=== PATIENT | female | born 1985 | race Caucasian/White ===

== ENCOUNTER 2016-12-07 06:30 | Inpatient (IN) | payer MEDICAID, OTHER, SELFPAY ==
[2016-12-07] MEDS: Lactated Ringer's 1,000 ML IV SCH ×2 (07:10→08:44)
[2016-12-07] MEDS ORDERED: Sodium Chloride 0.9% 100 ML ONE (07:11)
[2016-12-07] MEDS ORDERED: Penicillin G Potassium 5 MILL.UNITS VIAL ONE (07:11)
[2016-12-07 07:20] VITALS: BMI 26.5
[2016-12-07] MEDS ORDERED: Fentanyl 4 mcg/Marc 0.1% Cadd 100 ML ONE (07:25)
[2016-12-07 07:45] LABS: Mean Platelet Volume 7.8 fL (7.4-10.4); Red Blood Cell (RBC) Count 4.68 mill/uL (4.20-5.40); White Blood Cell (WBC) Count 6.4 thou/uL (4.8-10.8)
[2016-12-07] MEDS ORDERED: Lactated Ringer's 500 ML IV PRN (08:17)
[2016-12-07] MEDS ORDERED: Acetaminophen 325 MG TAB PO PRN (08:17)
[2016-12-07] MEDS ORDERED: Naloxone HCl 0.4 mg/ml Vial IVP PRN ×2 (08:17)
[2016-12-07] MEDS ORDERED: Promethazine HCl 25 MG/ML VIAL IM PRN ×2 (08:17→10:10)
[2016-12-07] MEDS ORDERED: Eucerin (Mineral Oil/Petrolatum,White) 30 gm Jar TOP PRN (08:17)
[2016-12-07] MEDS ORDERED: HYDROmorphone 2 MG/ML VIAL SLOW IVP PRN (08:17)
[2016-12-07] MEDS ORDERED: ePHEDrine/0.9% NaCl/PF SYRINGE 50 mg/10 ml SLOW IVP PRN (08:17)
[2016-12-07] MEDS ORDERED: Ondansetron HCl/PF 4 MG/2 ML Vial IVP PRN ×4 (08:17→13:37)
[2016-12-07] MEDS ORDERED: Meperidine HCl/PF 25 MG/ML VIAL SLOW IVP PRN (08:17)
[2016-12-07] MEDS ORDERED: diphenhydrAMINE 50 MG/ML VIAL IVP PRN (08:17)
[2016-12-07] MEDS ORDERED: Communication Order-Pharmacy FS SCH (08:30)
[2016-12-07] MEDS ORDERED: Ketorolac Tromethamine 30 MG/ML VIAL IVP SCH (08:30)
[2016-12-07] MEDS ORDERED: Fentanyl 4mcg/Marcaine 0.1% Cassette 100 ML EPIDURAL SCH (08:30)
[2016-12-07] MEDS ORDERED: LR / Pitocin 40 units/1000 ml 1,000 ML ONE (09:38)
[2016-12-07] MEDS ORDERED: Lidocaine 1% (PF) 30 ML VIAL ONE (09:39)
[2016-12-07] MEDS ORDERED: Lactated Ringer's 1,000 ML IV SCH (09:45)
[2016-12-07] MEDS ORDERED: HYDROcodone/Acetaminophen 5/325 mg Tablet PO PRN ×2 (10:10)
[2016-12-07] MEDS ORDERED: Diphenoxylate HCl/Atropine Tablet PO PRN ×2 (10:10)
[2016-12-07] MEDS ORDERED: Docusate 100 MG CAP PO PRN (10:10)
[2016-12-07] MEDS ORDERED: Zolpidem Tartrate 5 MG TAB PO PRN ×2 (10:10→18:21)
[2016-12-07] MEDS ORDERED: LR / Pitocin 40 units/1000 ml 1,000 ML IV PRN (10:10)
[2016-12-07] MEDS ORDERED: Lidocaine 1% (PF) 30 ML VIAL SC PRN (10:10)
[2016-12-07] MEDS ORDERED: Misoprostol 200 MCG TAB PR PRN (10:10)
[2016-12-07] MEDS ORDERED: Ibuprofen 800 MG TAB PO PRN (10:10)
[2016-12-07] MEDS ORDERED: Acetaminophen 500 MG TAB PO PRN (10:10)
[2016-12-07] MEDS ORDERED: Penicillin G Potassium 5 MILL.UNITS in Sodium Chloride 0.9% 100 ML IVPB SCH (10:15)
[2016-12-07] MEDS: Penicillin G 2.5 MILL.units 2.5 MILL.UNITS in Premix Bag 1 BAG IVPB SCH ×3 (11:19→21:48)
[2016-12-07] MEDS ORDERED: Preparation H Ointment 28 GM TUBE PR PRN (13:37)
[2016-12-07] MEDS ORDERED: Milk Of Magnesia 30 ML UDCUP PO PRN (13:37)
[2016-12-07] MEDS ORDERED: Bisacodyl 10 MG SUPP PR PRN (13:37)
[2016-12-07] MEDS ORDERED: Adacel (T-DAP) 0.5 ML VIAL IM ONE (13:37)
[2016-12-07] MEDS ORDERED: diphenhydrAMINE 25 MG CAP PO PRN (13:37)
[2016-12-07] MEDS ORDERED: Acetaminophen/Codeine 30-300mg Tablet PO PRN ×2 (13:37→18:20)
[2016-12-07] MEDS ORDERED: Benzocaine/Menthol 20-0.5% 60 ML CAN TOP PRN (13:37)
[2016-12-07] MEDS ORDERED: LR / Pitocin 40 units/1000 ml 1,000 ML IV SCH (13:45)
[2016-12-07] MEDS ORDERED: FLU VACC QS2017-18 36 mo. & older 0.5 ML SYRINGE IM ONE (21:00)
[2016-12-07] MEDS ORDERED: Bupivacaine 0.25% HCL 30 ML VIAL ONE (21:11)
[2016-12-07] MEDS: Ibuprofen 800 MG TAB PO SCH ×2 (21:46→21:47)
[2016-12-07] MEDS: Docusate (Surfak) 240 MG CAP PO SCH (21:46)
[2016-12-07] MEDS: Ferrous Sulfate 325 MG TAB PO SCH (21:48)
[2016-12-08] MEDS: Penicillin G 2.5 MILL.units 2.5 MILL.UNITS in Premix Bag 1 BAG IVPB SCH ×5 (00:22→17:40)
[2016-12-08] MEDS: Lanolin Ointment 7 GM TUBE TOP PRN (05:11)
[2016-12-08] MEDS: Ibuprofen 800 MG TAB PO SCH ×3 (05:11→21:11)
[2016-12-08] MEDS: Lactated Ringer's 1,000 ML IV SCH ×3 (05:27→17:40)
[2016-12-08] MEDS: Ferrous Sulfate 325 MG TAB PO SCH ×2 (08:24→17:40)
[2016-12-08] MEDS: Docusate (Surfak) 240 MG CAP PO SCH ×2 (09:10→21:11)
[2016-12-08] MEDS: Prenatal Vitamin 1 TAB PO SCH (09:10)
[2016-12-09] MEDS: Ibuprofen 800 MG TAB PO SCH ×2 (06:19→13:10)
[2016-12-09 09:00] VITALS: BP 100/61; TEMP 98.3
[2016-12-09] MEDS: Prenatal Vitamin 1 TAB PO SCH (10:01)
[2016-12-09] MEDS: Ferrous Sulfate 325 MG TAB PO SCH (10:01)
[2016-12-09] MEDS: Docusate (Surfak) 240 MG CAP PO SCH (10:01)
[2016-12-09] MEDS: Lanolin Ointment 7 GM TUBE TOP PRN (13:10)
[2016-12-09] MEDS ORDERED: Measles/Mumps/Rubella 10 MCG/0.5 ML VIAL SC ONE (21:00)
== END 2016-12-09 15:15 | disposition home or self-care (01) | DRG 775 ==
LOC: L&D/OP 06:30 → L&D 07:27 → 3SW 16:18
PROVIDERS: ADMIT Obstetrics & Gynecology; ATTEND Obstetrics & Gynecology
PROC: 10E0XZZ Delivery of Products of Conception, External Approach (ICD-10-PCS; principal; 2016-12-07)
PROC: 0KQM0ZZ Repair Perineum Muscle, Open Approach (ICD-10-PCS; 2016-12-07)
PROC: 10907ZC Drainage of Amniotic Fluid, Therapeutic from Products of Conception, Via Natural or Artificial Opening (ICD-10-PCS; 2016-12-07)
DX: O24.429 Gestational diabetes mellitus in childbirth, unspecified control (principal); O70.1 Second degree perineal laceration during delivery; O99.824 Streptococcus B carrier state complicating childbirth; Z3A.39 39 weeks gestation of pregnancy; Z37.0 Single live birth
CPT/HCPCS: 85027; 86780; 87340; 90707; J2001; J2540; J7050; S0020